=== PATIENT | female | born 1990 | race Caucasian/White ===

== ENCOUNTER 2016-08-05 08:34 | Emergency (ER) | payer SELFPAY ==
[~2016-08-05] VITALS: Ht 170.2 cm; Wt 133.2 kg
[~2016-08-05 08:34] MED LIST: AMOXICILLIN500 MG PO; BACTRIM DS1 TAB OR; CIPRO500 MG OR; TRIMOX500 MG PO; no meds
[2016-08-05] MEDS ORDERED: VENTOLIN HFA IN (09:49)
[2016-08-05] MEDS ORDERED: AMOXICILLIN500 MG PO (09:49)
[2016-08-05 09:55] VITALS: BP 143/82
== END 2016-08-05 10:02 | disposition home or self-care (01) | DRG 203 ==
LOC: ED 08:34
DX: J40 Bronchitis, not specified as acute or chronic (principal); R06.02 Shortness of breath; Z72.0 Tobacco use; R05 Cough; R06.2 Wheezing

== ENCOUNTER 2016-10-05 19:20 | Emergency (ER) | payer SELFPAY ==
[~2016-10-05] VITALS: Ht 170.2 cm; Wt 132.8 kg
[~2016-10-05 19:20] MED LIST changes: +VENTOLIN HFA IN
--- NOTE | 2016-10-05 20:23 | NUR ---
BREATHING TREATMENT GIVEN. ASK TO BREATH DEEPLY FOR GOOD DEPOSITION TO THE LUNGS.
[2016-10-05 20:55] LABS: INFLUENZA A NONE DETECTED (NONE DETECT); INFLUENZA B NONE DETECTED (NONE DETECT)
[2016-10-05] MEDS ORDERED: AMOXICILLIN500 MG PO (21:22)
[2016-10-05] MEDS ORDERED: PROVENTIL0.083 % IN (21:22)
[2016-10-05 22:25] VITALS: BP 124/77
== END 2016-10-05 22:28 | disposition home or self-care (01) | DRG 203 ==
LOC: ED 19:20
PROVIDERS: Emergency Medicine
DX: J40 Bronchitis, not specified as acute or chronic (principal); F17.210 Nicotine dependence, cigarettes, uncomplicated; J32.9 Chronic sinusitis, unspecified

== ENCOUNTER 2016-11-12 20:00 | Emergency (ER) | payer SELFPAY ==
[~2016-11-12] VITALS: Ht 170.2 cm; Wt 128.8 kg
[~2016-11-12 20:00] MED LIST changes: +PROVENTIL0.083 % IN
[2016-11-12] MEDS ORDERED: MEDDOSEPAK PO (20:56)
[2016-11-12] MEDS ORDERED: KEFLEX500 M1 PO (20:56)
[2016-11-12] MEDS ORDERED: ROBITUSSIN AC10 ML PO (20:56)
[2016-11-12 21:00] VITALS: BP 134/80
== END 2016-11-12 21:05 | disposition home or self-care (01) | DRG 203 ==
LOC: ED 20:00
DX: J40 Bronchitis, not specified as acute or chronic (principal); F17.210 Nicotine dependence, cigarettes, uncomplicated; R06.2 Wheezing; R05 Cough

== ENCOUNTER 2017-01-06 21:44 | Emergency (ER) | payer SELFPAY ==
[~2017-01-06] VITALS: Ht 170.2 cm; Wt 130.0 kg
[~2017-01-06 21:44] MED LIST changes: +KEFLEX500 M1 PO; +MEDDOSEPAK PO; +ROBITUSSIN AC10 ML PO
[2017-01-06 23:48] VITALS: BP 122/72
== END 2017-01-06 23:48 | disposition home or self-care (01) | DRG 203 ==
LOC: ED 21:44
DX: J45.901 Unspecified asthma with (acute) exacerbation (principal); F17.210 Nicotine dependence, cigarettes, uncomplicated; R06.02 Shortness of breath

== ENCOUNTER 2017-08-30 23:46 | Emergency (ER) | payer OTHER ==
[~2017-08-30] VITALS: Ht 170.2 cm; Wt 100.8 kg
[2017-08-30 23:50] VITALS: BP 118/80
[2017-08-31 00:29] LABS: HEMATOCRIT 32.6 % (37.0-47.0); HEMOGLOBIN 10.7 g/dl (12.0-16.0); IMMATURE GRANULOCYTES 0.4 % (0.0-1.0); MEAN CELL VOLUME 76.5 fL CALC (80.0-100.0); MEAN CORPUSCULAR HGB 25.1 pG CALC (26.0-32.0); MEAN CORPUSCULAR HGB CONC 32.8 g/L CALC (32.0-36.0); NEUT# 3.51 thou/uL (2.00-7.15); RED BLOOD COUNT 4.26 mill/uL (4.20-5.60); RED CELL DISTRI WIDTH 16.7 % (11.5-15.5)
[2017-08-31 00:43] LABS: ALBUMIN 3.5 g/dL (3.2-5.0); BILIRUBIN, TOTAL 0.3 mg/dL (0.0-1.4); BUN 5 mg/dL (7-17); BUN/CREATININE RATIO 9 (12-20 (CALC)); CARBON DIOXIDE 20 mmol/l (22-30); CHLORIDE 107 mmol/l (95-108); CREATININE 0.6 mg/dL (0.5-1.0); GFR > 60 ML/MIN (>=60 (CALC)); GFR FOR AFR.AMER. > 60 ML/MIN (>=60 (CALC)); POTASSIUM 3.7 mmol/l (3.5-5.1); SGOT/AST 13 u/l (14-36); SGPT/ALT 29 u/l (9-52); TOTAL PROTEIN 6.6 g/dL (6.3-8.2)
[2017-08-31 00:52] LABS: ALKALINE PHOSPHATASE 70 u/l (38-126); ANION GAP 15 (6-22 (CALC)); SODIUM 138 mmol/l (137-146)
[2017-08-31 01:26] LABS: BETA-HCG, QUANT(RESULT NUMBER) 40222 mIU/mL
== END 2017-08-31 01:10 | disposition left against medical advice (07) | DRG 778 ==
LOC: ED 23:46
PROVIDERS: Emergency Medicine
DX: O20.0 Threatened abortion (principal); F17.210 Nicotine dependence, cigarettes, uncomplicated; O99.332 Smoking (tobacco) complicating pregnancy, second trimester; Z3A.14 14 weeks gestation of pregnancy; Z91.19 Patient's noncompliance with other medical treatment and regimen

== ENCOUNTER 2017-10-27 14:39 | Emergency (ER) | payer OTHER ==
[~2017-10-27] VITALS: Ht 170.2 cm; Wt 100.0 kg
[2017-10-27] MEDS ORDERED: PRENATA1 CHW PO (15:15)
[2017-10-27 15:55] LABS: URINE BILIRUBIN - DIPSTICK NEGATIVE (NEGATIVE); URINE BLOOD DIPSTICK NEGATIVE (NEGATIVE); URINE COLOR YELLOW; URINE GLUCOSE - DIPSTICK NEGATIVE (NEGATIVE); URINE KETONE NEGATIVE (NEGATIVE); URINE NITRITE - DIPSTICK NEGATIVE (Negative); URINE PROTEIN - DIPSTICK NEGATIVE (NEG-TRACE)
[2017-10-27 16:02] LABS: URINE CLARITY CLOUDY; URINE LEUK ESTERASE SMALL (NEGATIVE)
[2017-10-27 16:08] LABS: URINE AMORPH SEDIMENT MANY hpf (NONE-FEW); URINE RBC 0-2 RBC/hpf (0-5); URINE SQUAMOUS EPITHELIAL CELL MODERATE EPI/hpf (0-FEW)
[2017-10-27] MEDS ORDERED: CEPHALEXIN500 M1 PO (16:28)
[2017-10-27 16:48] VITALS: BP 133/94
== END 2017-10-27 16:48 | disposition home or self-care (01) ==
LOC: ED 14:39
PROVIDERS: Family Medicine
DX: O23.42 Unspecified infection of urinary tract in pregnancy, second trimester (principal); O99.332 Smoking (tobacco) complicating pregnancy, second trimester; F17.210 Nicotine dependence, cigarettes, uncomplicated; O26.892 Other specified pregnancy related conditions, second trimester; R10.30 Lower abdominal pain, unspecified; Z3A.23 23 weeks gestation of pregnancy

== ENCOUNTER 2018-02-13 08:48 | Emergency (ER) | payer OTHER ==
[~2018-02-13 08:48] MED LIST changes: +CEPHALEXIN500 M1 PO; +PRENATA1 CHW PO
[2018-02-13 09:02] VITALS: BP 157/80
== END 2018-02-13 09:18 | disposition left against medical advice (07) ==
LOC: ED 08:48
DX: O26.893 Other specified pregnancy related conditions, third trimester (principal); R10.9 Unspecified abdominal pain; O99.333 Smoking (tobacco) complicating pregnancy, third trimester; F17.200 Nicotine dependence, unspecified, uncomplicated; Z3A.39 39 weeks gestation of pregnancy; Z91.19 Patient's noncompliance with other medical treatment and regimen

== ENCOUNTER 2019-07-22 | Emergency (ER) | payer OTHER | END 2019-07-22 23:35 | disposition T-BLAKE | DX: S66.921A Laceration of unspecified muscle, fascia and tendon at wrist and hand level, right hand, initial encounter (principal); S61.511A Laceration without foreign body of right wrist, initial encounter; W25.XXXA Contact with sharp glass, initial encounter; Y93.89 Activity, other specified; Y92.009 Unspecified place in unspecified non-institutional (private) residence as the place of occurrence of the external cause ==

== ENCOUNTER 2019-07-28 | Emergency (ER) | payer OTHER ==
[2019-07-28 22:39] LABS: HEMATOCRIT 28.1 % (37.0-47.0); HEMOGLOBIN 9.1 g/dl (12.0-16.0); IMMATURE GRANULOCYTES 0.5 % (0.0-5.0); MEAN CORPUSCULAR HGB 26.5 pG CALC (26.0-32.0); MEAN CORPUSCULAR HGB CONC 32.4 g/dL CAL (32.0-36.0); NEUT# 2.41 thou/uL (2.00-7.15); RED BLOOD COUNT 3.43 mill/uL (4.20-5.60)
[2019-07-28] MEDS ORDERED: PROAIR HFA108 MCG/AC IN (22:41)
[2019-07-28 22:44] LABS: MEAN CELL VOLUME 81.9 fL CALC (80.0-100.0)
[2019-07-28 22:51] LABS: URINE BILIRUBIN - DIPSTICK NEGATIVE (NEGATIVE); URINE BLOOD DIPSTICK NEGATIVE (NEGATIVE); URINE COLOR YELLOW; URINE GLUCOSE - DIPSTICK NEGATIVE (NEGATIVE); URINE KETONE NEGATIVE (NEGATIVE); URINE NITRITE - DIPSTICK NEGATIVE (Negative); URINE PH 5.5 (4.5-8.0); URINE PROTEIN - DIPSTICK NEGATIVE (NEG-TRACE); URINE SPECIFIC GRAVITY >=1.030
[2019-07-28 22:52] LABS: URINE LEUK ESTERASE MODERATE (NEGATIVE)
[2019-07-28 22:53] LABS: AMYLASE 32 u/l (30-110); BUN 14 mg/dL (7-17); BUN/CREATININE RATIO 22 (12-20 (CALC)); CHLORIDE 105 mmol/l (95-108); CREATININE 0.6 mg/dL (0.5-1.0); GFR > 60 ML/MIN (>=60 (CALC)); GFR FOR AFR.AMER. > 60 ML/MIN (>=60 (CALC)); LIPASE 216 u/l (23-300); POTASSIUM 4.2 mmol/l (3.5-5.1); SODIUM 137 mmol/l (137-146); TOTAL PROTEIN 6.7 g/dL (6.3-8.2)
[2019-07-28 22:56] LABS: BARBITURATES NEGATIVE (NEGATIVE); COCAINE NEGATIVE (NEGATIVE); METHADONE NEGATIVE (NEGATIVE); TETRAHYDROCANNABIONOL NEGATIVE (NEGATIVE); TRICYLIC ANTIDEPRESSANTS NEGATIVE (NEGATIVE)
[2019-07-28 22:57] LABS: OXCYCODONE NEGATIVE (NEGATIVE)
[2019-07-28 23:00] LABS: URINE BACTERIA FEW hpf; URINE SQUAMOUS EPITHELIAL CELL MANY EPI/hpf (0-FEW)
[2019-07-28 23:01] LABS: ALKALINE PHOSPHATASE 217 u/l (38-126); ANION GAP 10 (6-22 (CALC)); BILIRUBIN, TOTAL 1.1 mg/dL (0.0-1.4); CARBON DIOXIDE 26 mmol/l (22-30); SGOT/AST 918 u/l (14-36)
[2019-07-28 23:09] LABS: BETA-HCG, QUANT(RESULT NUMBER) 4641 mIU/mL
[2019-07-29] MEDS ORDERED: TRAMADOL HCL50 MG PO (00:25)
== END 2019-07-29 01:07 | disposition home or self-care (01) ==
PROVIDERS: Family Medicine
DX: O99.619 Diseases of the digestive system complicating pregnancy, unspecified trimester (principal); K80.20 Calculus of gallbladder without cholecystitis without obstruction; O99.330 Smoking (tobacco) complicating pregnancy, unspecified trimester; F17.210 Nicotine dependence, cigarettes, uncomplicated; Z3A.00 Weeks of gestation of pregnancy not specified

== ENCOUNTER 2020-03-31 15:23 | Emergency (ER) | payer OTHER ==
[~2020-03-31] VITALS: Ht 170.2 cm; Wt 106.8 kg
[~2020-03-31 15:23] MED LIST changes: +PROAIR HFA108 MCG/AC IN; +TRAMADOL HCL50 MG PO
[2020-03-31 15:44] LABS: IMMATURE GRANULOCYTES 0.3 % (0.0-5.0); MEAN CELL VOLUME 80.7 fL CALC (80.0-100.0); MEAN CORPUSCULAR HGB 25.5 pG CALC (26.0-32.0); MEAN CORPUSCULAR HGB CONC 31.6 g/dL CAL (32.0-36.0); NEUT# 2.84 thou/uL (2.00-7.15); RED BLOOD COUNT 5.22 mill/uL (4.20-5.60); RED CELL DISTRI WIDTH 13.5 % (11.5-15.5)
[2020-03-31 15:51] LABS: HEMATOCRIT 42.1 % (37.0-47.0); HEMOGLOBIN 13.3 g/dl (12.0-16.0)
[2020-03-31 15:55] LABS: ALBUMIN 4.2 g/dL (3.2-5.0); AMYLASE 47 u/l (30-110); ANION GAP 12 (6-22 (CALC)); BUN 13 mg/dL (7-17); BUN/CREATININE RATIO 18 (12-20 (CALC)); CARBON DIOXIDE 25 mmol/l (22-30); CHLORIDE 107 mmol/l (95-108); CREATININE 0.7 mg/dL (0.5-1.0); GFR > 60 ML/MIN (>=60 (CALC)); GFR FOR AFR.AMER. > 60 ML/MIN (>=60 (CALC)); LIPASE 117 u/l (23-300); POTASSIUM 4.9 mmol/l (3.5-5.1); SODIUM 138 mmol/l (137-146); TOTAL PROTEIN 7.1 g/dL (6.3-8.2)
[2020-03-31 15:57] LABS: ALKALINE PHOSPHATASE 90 u/l (38-126); BILIRUBIN, TOTAL 0.4 mg/dL (0.0-1.4); SGOT/AST 24 u/l (14-36)
[2020-03-31 16:17] LABS: URINE BILIRUBIN - DIPSTICK NEGATIVE (NEGATIVE); URINE BLOOD DIPSTICK MODERATE (NEGATIVE); URINE COLOR YELLOW; URINE GLUCOSE - DIPSTICK NEGATIVE (NEGATIVE); URINE KETONE NEGATIVE (NEGATIVE); URINE LEUK ESTERASE NEGATIVE (NEGATIVE); URINE NITRITE - DIPSTICK NEGATIVE (Negative); URINE PH 6.5 (4.5-8.0); URINE PROTEIN - DIPSTICK NEGATIVE (NEG-TRACE); URINE UROBILINOGEN - DIPSTICK 0.2 E.U./dL (0.2)
[2020-03-31 16:37] LABS: URINE SQUAMOUS EPITHELIAL CELL FEW EPI/hpf (0-FEW)
[2020-03-31 17:34] VITALS: BP 138/66
== END 2020-03-31 17:51 | DRG 392 ==
LOC: ED 15:23
DX: R10.11 Right upper quadrant pain (principal); R10.13 Epigastric pain; J45.909 Unspecified asthma, uncomplicated; Z20.828 Contact with and (suspected) exposure to other viral communicable diseases
CPT/HCPCS: Q9967